=== PATIENT | female | born 1995 | race Caucasian/White ===

== ENCOUNTER 2018-09-30 17:31 | Emergency (ER) | payer BC ==
--- NOTE | 2018-09-30 18:49 | EDPHY ---
H & P Time Seen by Provider: 09/30/18 18:10 HPI/ROS: CHIEF COMPLAINT: Ongoing migraine, eyes can focus HISTORY OF PRESENT ILLNESS: The patient is a 23-year-old female who was diagnosed with migraines last fall. She was seen by Dr. Hussein. She had a negative MRI in March. She has had intermittent migraine since that time. They usually last for a couple of weeks. This migraine started in May. It has been waxing and waning in severity. She feels as though she has an ongoing aura. She states it is hard to describe. She feels as though she seeing some spots. She can focus on 1 spot but the surrounding areas are slightly fuzzy. She has "passed images" when she moves her eyes. Her headache radiates from the front to the back. She has had no nausea vomiting. No fevers or chills. No weakness. She has occasional right facial numbness. She has had no recent trauma. REVIEW OF SYSTEMS: 10 systems were reveiwed and are negative with the exception of the elements mentioned in the history of present illness. Past Medical/Surgical History: Includes migraine Smoking Status: Never smoked Physical Exam: Vitals noted GENERAL: Well-appearing, in no acute distress, alert. HEENT: Eyes normal to inspection, normal pharynx, no signs of dehydration. NECK: Normal, supple. RESPIRATORY: Clear to auscultation bilaterally, no rales, rhonchi or wheezing. CVS: Regular rate and rhythm, no rubs, murmurs, or gallops. ABDOMEN: Soft, nontender, nondistended, no organomegaly. BACK: Normal to inspection, no CVA tenderness. SKIN: Normal color, no rash, warm, dry. No pallor. EXTREMITIES: No pedal edema, no calf tenderness, no Homans sign or cords, no joint swelling. NEURO/PSYCH: Higher functions: Alert and Oriented x3. Normal speech and cognition. Normal mood and affect. Cranial nerves: Normal as tested. Cerebellar: Normal as tested. Good finger to nose, good [id number], normal gait. Peripheral exam: Normal motor exam. Normal sensation. Normal reflexes. Constitutional: Initial Vital Signs Temperature (C) 36.0 C 09/30/18 17:40 Heart Rate 78 09/30/18 17:40 Respiratory Rate 16 09/30/18 17:40 Blood Pressure 110/75 09/30/18 17:40 O2 Sat (%) 97 09/30/18 17:40 O2 Delivery Mode Room Air Allergies/Adverse Reactions: lamotrigine [From Lamictal] Allergy (Verified 09/30/18 17:38) Home Medications: Medication Instructions Recorded [place] 09/30/18 Depen 09/30/18 Levothyroxine 09/30/18 Naratriptan HCl 09/30/18 Prozac 20 MG (*) 09/30/18 Medical Decision Making - Diagnostics Imaging Results: Imaging Impressions Head CT 09/30/18 19:02 Impression: No acute intracranial findings. If symptoms persist and clinical suspicion warrants, consider MRI. Findings discussed with ROSITA MOSES 09/30/2018 at 19:35. ED Course/Re-evaluation: In the emergency department I discussed possible etiologies with the patient. I answered all her questions. IV was placed. The patient was given Decadron and Toradol. Head CT: Please refer the dictated report. No acute disease noted. I rechecked the patient. She states she had minimal discomfort. She had no focal deficits but still continued to have some strange visual changes. Patient currently sees Dr. Hussein from Neurology. She will call 1st thing Tuesday morning to make an appointment. She was also given follow-up with Ophthalmology. The patient was given warnings prior to leaving. She will return worsening symptoms. Differential Diagnosis: My differential includes but is not limited to migraine, subarachnoid hemorrhage , subdural hematoma, epidural hematoma, retinal detachment, CVA, dissection - Data Points Medications Given: Discontinued Medications Dexamethasone (Decadron Injection) 10 mg IVP EDNOW ONE Stop: 09/30/18 19:00 Last Admin: 09/30/18 19:29 Dose: 10 mg Fentanyl (Sublimaze) 100 mcg IVP EDNOW ONE Stop: 09/30/18 19:00 Last Admin: 09/30/18 19:29 Dose: Not Given Sodium Chloride (Ns) 1,000 mls @ 0 mls/hr IV ONCE ONE; Wide Open PRN Reason: Protocol Stop: 09/30/18 19:00 Last Admin: 09/30/18 19:28 Dose: 1,000 mls Ketorolac Tromethamine (Toradol) 30 mg IVP EDNOW ONE Stop: 09/30/18 19:00 Last Admin: 09/30/18 19:29 Dose: 30 mg Ondansetron HCl (Zofran) 4 mg IVP EDNOW ONE Stop: 09/30/18 19:00 Last Admin: 09/30/18 19:29 Dose: Not Given Departure - Departure Disposition: Home, Routine, Self-Care Clinical Impression: Visual changes Headache Qualifiers: Headache type: unspecified Headache chronicity pattern: acute headache Intractability: not intractable Qualified Code(s): R51 - Headache Condition: Good Instructions: Acute Headache (ED), Blurred Vision (ED) Additional Instructions: Your head CT was negative. You need follow-up with your neurologist Dr. Hussein. You have also been given follow-up with Ophthalmology. Call Tuesday to make an appointment. Return with worsening symptoms or concerns. Referrals: Jonas Harrell MD [Medical Doctor] - 3-4 days, if not improved
[2018-09-30] MEDS ORDERED: KETOROLAC 30 MG/1 ML SDV IVP ONE (18:59)
[2018-09-30] MEDS ORDERED: fentaNYL 100 MCG/2 ML INJ IVP ONE (18:59)
[2018-09-30] MEDS ORDERED: DEXAMETHASONE 10 MG/ML VIAL IVP ONE (18:59)
[2018-09-30] MEDS ORDERED: ONDANSETRON 4 MG/2 ML VIAL IVP ONE (18:59)
[2018-09-30] MEDS ORDERED: NS 1,000 ML IV ONE (18:59)
[2018-09-30 21:51] VITALS: BP 102/58
== END 2018-09-30 22:09 | disposition home or self-care (01) ==
DX: G43.909 Migraine, unspecified, not intractable, without status migrainosus (principal); H53.9 Unspecified visual disturbance; E86.9 Volume depletion, unspecified
CPT/HCPCS: 96374; J1100; J1885; J2405; J3010